=== PATIENT | female | born 1985 | race Caucasian/White ===

== ENCOUNTER 2020-11-19 21:26 | Emergency (ER) | payer SELFPAY ==
[2020-11-19] MEDS ORDERED: LORazepam 2 MG/ML SDV IVPUSH ONE (21:51)
[2020-11-19] MEDS ORDERED: LORazepam 1 MG Tab PO ONE (22:01)
--- NOTE | 2020-11-19 22:12 | EDM.PDOC ---
ED HPI GENERAL MEDICAL PROBLEM - General Chief Complaint: Behavioral/Psych Stated Complaint: ALCOHOL POISONING Time Seen by Provider: 11/19/20 21:39 - History of Present Illness INITIAL COMMENTS - FREE TEXT/NARRATIVE: HISTORY AND PHYSICAL: History of present illness: This is a 35-year-old female with no significant past medical history for hypertension, diabetes, liver, lung, kidney problems, depression, bipolar, schizophrenia, or other mental health issues who presents ER today secondary to depression and having self-harm thoughts. Patient reports that she has been having increasing depression over the last several weeks over the recent of 2 of her family members. Patient reports that she has 3 children and is and lives with her . 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 Patient reports that whenever she looks at scissors she has thoughts about what would happen if she stabbed herself and . Patient is tearful about what would happen to her children. Patient reports that she had been having self-harm thoughts but has had no specific plan on doing it to herself. Patient is extremely tearful during this evaluation. Patient denies any recent fevers, shakes, chills, nausea, vomiting, diarrhea, dysuria, frequency, urgency. Patient reports that she feels extremely anxious and has a hard time breathing at times. Patient denies any homicidal thoughts. Patient admits to alcohol use approximately 6 days ago. Patient reports that she was drinking approximately 4-5 shots of whiskey daily for 4 days (from Tuesday to Tuesday). She reports her last drink was on Tuesday and she has had not had any thing to drink on Tuesday or Tuesday secondary to having to go back to work. Review of systems: As per history of present illness and below otherwise all systems reviewed and negative. Past medical history: As per history of present illness and as reviewed below otherwise noncontributory. Surgical history: As per history of present illness and as reviewed below otherwise noncontributory. Social history: No reported history of drug or alcohol abuse. Family history: As per history of present illness and as reviewed below otherwise noncontributory. Physical exam: Constitutional: Patient is oriented to person, place, and time. Appears well- developed and well-nourished. No distress. HEENT: Moist mucous membranes Head: Normocephalic and atraumatic Eyes: Right eye exhibits no discharge. Left eye exhibits no discharge. No scleral icterus Neck: Normal range of motion. No tracheal deviation present. Cardiovascular: Normal rate and regular rhythm. Pulmonary: Effort normal, no respiratory distress. Abdominal: No distention Musculoskeletal: Normal range of motion Neurologic: Alert and oriented to person, place and time. Skin: Magnet, warm and dry. Psychiatric: Tearful and depressed. Poor eye contact. Nursing note and vital signs have been reviewed This patient was seen and evaluated during the 2019 SARS-CoV-2 novel coronavirus pandemic period. Community viral transmission is ongoing at time of this encounter and the emergency department is operating under pandemic response procedures. Diagnostics: Mental health profile Therapeutics: Ativan 1 mg p.o. Assessment and plan: This is a 35-year-old female with no significant past medical history or mental health history who presents ER today secondary to severe depression and having passive suicidal thoughts. I have discussed with the patient that we will check her labs that we can medically clear her and I thought that she would be best served by being transferred to speak to a mental health specialist which would require transfer to another facility. Patient is agreement with the plan at this time. Patient will be given Ativan 1 mg p.o. to assist her with her anxiety. 11:39 PM: Patient has been resting comfortably in the ED. Patient's labs are all within normal limits. Patient's alcohol level was 15. Patient's urine drug screen is negative. We will discuss with [facility] for possible transfer for mental health admission secondary to SI and MDD. Case discussed with Dr. Colmenares with agreed to accept patient in transfer for further mental health evaluation. Patient be transferred by S. Definitive disposition and diagnosis as appropriate pending reevaluation and review of above. - Related Data Allergies Allergy/AdvReac Type Severity Reaction Status Date / Time No Known Allergies Allergy Verified 11/19/20 21:57 Home Meds: Home Meds . [No Known Home Meds] 11/19/20 [History] ED ROS GENERAL - Review of Systems Review Of Systems: See Below ED EXAM, GENERAL - Physical Exam Exam: See Below #1 Interpretation EKG Interpretation Comments: EKG: As interpreted by ER physician: Jluis: Nonspecific ST-T wave abnormalities Normal axis No evidence of ST elevation RI Normal sinus rhythm heart rate of 103 Course - Vital Signs Last Recorded V/S: Last Vital Signs Temp 98.1 F 11/19/20 21:40 Pulse 98 11/19/20 22:30 Resp 18 11/19/20 22:30 BP 134/87 11/19/20 22:30 Pulse Ox 97 11/19/20 22:30 - Orders/Labs/Meds Orders: Active Orders 24 hr Category Date Time Status EKG Documentation Completion [RC] STAT Care 11/19/20 21:51 Active Labs: Laboratory Tests 11/19/20 11/19/20 11/19/20 Range/Units 21:45 21:45 21:45 WBC (4.0-11.0) K/uL RBC (4.30-5.90) M/uL Hgb (12.0-16.0) g/dL Hct (36.0-46.0) % MCV (80.0-98.0) fL MCH (27.0-32.0) pg MCHC (31.0-37.0) g/dL RDW Std Deviation (28.0-62.0) fl RDW Coeff of Denisse (11.0-15.0) % Plt Count (150-400) K/uL MPV (7.40-12.00) fL Neut % (Auto) (48.0-80.0) % Lymph % (Auto) (16.0-40.0) % [place] % (Auto) (0.0-15.0) % Eos % (Auto) (0.0-7.0) % Baso % (Auto) (0.0-1.5) % Neut # (Auto) (1.4-5.7) K/uL Lymph # (Auto) (0.6-2.4) K/uL [place] # (Auto) (0.0-0.8) K/uL Eos # (Auto) (0.0-0.7) K/uL Baso # (Auto) (0.0-0.1) K/uL Nucleated RBC % /100WBC Nucleated RBCs # K/uL Sodium (136-145) mmol/L Potassium (3.5-5.1) mmol/L Chloride (98-107) mmol/L Carbon Dioxide (21.0-32.0) mmol/L BUN (7.0-18.0) mg/dL Creatinine (0.6-1.0) mg/dL Est Cr Clr Drug Dosing mL/min Estimated GFR (MDRD) ml/min Glucose (74-106) mg/dL Calcium (8.5-10.1) mg/dL Magnesium (1.8-2.4) mg/dL Total Bilirubin (0.2-1.0) mg/dL AST (15-37) IU/L ALT (14-63) IU/L Alkaline Phosphatase (46-116) U/L Total Protein (6.4-8.2) g/dL Albumin (3.4-5.0) g/dL Globulin (2.6-4.0) g/dL Albumin/Globulin Ratio (0.9-1.6) TSH 3rd Generation (0.36-3.74) uIU/mL Urine Color YELLOW Urine Appearance CLOUDY Urine pH 6.0 (5.0-8.0) Ur Specific [place] 1.010 (1.001-1.035) Urine Protein NEGATIVE (NEGATIVE) mg/dL Urine Glucose (UA) NEGATIVE (NEGATIVE) mg/dL Urine Ketones NEGATIVE (NEGATIVE) mg/dL Urine Occult Blood SMALL H (NEGATIVE) Urine Nitrite POSITIVE H (NEGATIVE) Urine Bilirubin NEGATIVE (NEGATIVE) Urine Urobilinogen 0.2 (<2.0) EU/dL Ur Leukocyte Esterase TRACE H (NEGATIVE) Urine RBC 1-3 (0-2/HPF) Urine WBC 5-8 (0-5/HPF) Ur Epithelial Cells OCCASIONAL (NONE-FEW) Urine Bacteria 4+ H (NEGATIVE) Urine Mucus LIGHT (NONE-MOD) Urine HCG, Qual NEGATIVE (NEGATIVE) Salicylates (0-20) mg/dL Urine Opiates Screen NEGATIVE (NEGATIVE) Ur Oxycodone Screen NEGATIVE (NEGATIVE) Urine Methadone Screen NEGATIVE (NEGATIVE) Acetaminophen ug/mL Ur Barbiturates Screen NEGATIVE (NEGATIVE) Ur Phencyclidine Scrn NEGATIVE (NEGATIVE) Ur Amphetamine Screen NEGATIVE (NEGATIVE) U Methamphetamines Scrn NEGATIVE (NEGATIVE) U Benzodiazepines Scrn NEGATIVE (NEGATIVE) U Cocaine Metab Screen NEGATIVE (NEGATIVE) U Marijuana (THC) Screen NEGATIVE (NEGATIVE) Ethyl Alcohol mg/dL SARS-CoV-2 RNA (BRAYDON) (NEGATIVE) 11/19/20 11/19/20 11/19/20 Range/Units 22:03 22:03 22:30 WBC 9.56 (4.0-11.0) K/uL RBC 4.16 L (4.30-5.90) M/uL Hgb 13.2 (12.0-16.0) g/dL Hct 38.3 (36.0-46.0) % MCV 92.1 (80.0-98.0) fL MCH 31.7 (27.0-32.0) pg MCHC 34.5 (31.0-37.0) g/dL RDW Std Deviation 42.8 (28.0-62.0) fl RDW Coeff of Denisse 13 (11.0-15.0) % Plt Count 302 (150-400) K/uL MPV 9.70 (7.40-12.00) fL Neut % (Auto) 69.5 (48.0-80.0) % Lymph % (Auto) 25.0 (16.0-40.0) % [place] % (Auto) 3.8 (0.0-15.0) % Eos % (Auto) 1.2 (0.0-7.0) % Baso % (Auto) 0.5 (0.0-1.5) % Neut # (Auto) 6.7 H (1.4-5.7) K/uL Lymph # (Auto) 2.4 (0.6-2.4) K/uL [place] # (Auto) 0.4 (0.0-0.8) K/uL Eos # (Auto) 0.1 (0.0-0.7) K/uL Baso # (Auto) 0.1 (0.0-0.1) K/uL Nucleated RBC % 0.0 /100WBC Nucleated RBCs # 0 K/uL Sodium 139 (136-145) mmol/L Potassium 3.1 L (3.5-5.1) mmol/L Chloride 100 (98-107) mmol/L Carbon Dioxide 24.1 (21.0-32.0) mmol/L BUN 8 (7.0-18.0) mg/dL Creatinine 0.7 (0.6-1.0) mg/dL Est Cr Clr Drug Dosing 107.01 mL/min Estimated GFR (MDRD) > 60.0 ml/min Glucose 120 H (74-106) mg/dL Calcium 8.2 L (8.5-10.1) mg/dL Magnesium 2.0 (1.8-2.4) mg/dL Total Bilirubin 0.2 (0.2-1.0) mg/dL AST 24 (15-37) IU/L ALT 36 (14-63) IU/L Alkaline Phosphatase 86 (46-116) U/L Total Protein 7.8 (6.4-8.2) g/dL Albumin 3.8 (3.4-5.0) g/dL Globulin 4.0 (2.6-4.0) g/dL Albumin/Globulin Ratio 0.9 (0.9-1.6) TSH 3rd Generation 0.77 (0.36-3.74) uIU/mL Urine Color Urine Appearance Urine pH (5.0-8.0) Ur Specific [place] (1.001-1.035) Urine Protein (NEGATIVE) mg/dL Urine Glucose (UA) (NEGATIVE) mg/dL Urine Ketones (NEGATIVE) mg/dL Urine Occult Blood (NEGATIVE) Urine Nitrite (NEGATIVE) Urine Bilirubin (NEGATIVE) Urine Urobilinogen (<2.0) EU/dL Ur Leukocyte Esterase (NEGATIVE) Urine RBC (0-2/HPF) Urine WBC (0-5/HPF) Ur Epithelial Cells (NONE-FEW) Urine Bacteria (NEGATIVE) Urine Mucus (NONE-MOD) Urine HCG, Qual (NEGATIVE) Salicylates 1.8 (0-20) mg/dL Urine Opiates Screen (NEGATIVE) Ur Oxycodone Screen (NEGATIVE) Urine Methadone Screen (NEGATIVE) Acetaminophen <2.0 ug/mL Ur Barbiturates Screen (NEGATIVE) Ur Phencyclidine Scrn (NEGATIVE) Ur Amphetamine Screen (NEGATIVE) U Methamphetamines Scrn (NEGATIVE) U Benzodiazepines Scrn (NEGATIVE) U Cocaine Metab Screen (NEGATIVE) U Marijuana (THC) Screen (NEGATIVE) Ethyl Alcohol 15 mg/dL SARS-CoV-2 RNA (BRAYDON) NEGATIVE (NEGATIVE) Meds: Medications Discontinued Medications Generic Name Dose Route Start Last Admin Trade Name Freq PRN Reason Stop Dose Admin Lorazepam 1 mg 11/19/20 21:51 11/19/20 22:02 Ativan IVPUSH 11/19/20 21:52 Not Given ONETIME ONE Lorazepam 1 mg 11/19/20 22:01 11/19/20 22:07 Ativan PO 11/19/20 22:02 1 mg ONETIME ONE Administration Departure - Departure Time of Disposition: 23:42 Disposition: DC/Tfer to Psych Hosp/Unit 65 Condition: Fair Clinical Impression: Depressive disorder, Suicidal ideation MDD (major depressive disorder) Qualifiers: Major depression recurrence: single episode Active/Remission status: currently active Major depression episode severity: severe Psychotic features: without psychotic features Qualified Code(s): F32.2 - Major depressive disorder, single episode, severe without psychotic features - Discharge Information Referrals: PCP,None [Primary Care Provider] - Forms: ED Department Discharge Sepsis Event Note (ED) - Evaluation Sepsis Screening Result: No Definite Risk - Focused Exam Vital Signs: Vital Signs Temp Pulse Resp BP Pulse Ox 11/19/20 22:30 98 18 134/87 97 11/19/20 21:40 98.1 F 104 H 18 126/65 97 - My Orders Last 24 Hours: My Active Orders 11/19/20 21:51 EKG Documentation Completion [RC] STAT - Assessment/Plan Last 24 Hours: My Active Orders 11/19/20 21:51 EKG Documentation Completion [RC] STAT
[2020-11-19 22:39] LABS: ACETAMINOPHEN <2.0 ug/mL; BLOOD UREA NITROGEN,BUN 8 mg/dL (7.0-18.0); CARBON DIOXIDE,CO2 24.1 mmol/L (21.0-32.0); CHLORIDE,CL 100 mmol/L (98-107); GLUCOSE RANDOM 120 mg/dL (74-106); POTASSIUM,K 3.1 mmol/L (3.5-5.1); SODIUM,NA 139 mmol/L (136-145)
== END 2020-11-20 00:40 ==
LOC: MW.ED 21:26
DX: F32.2 Major depressive disorder, single episode, severe without psychotic features (principal); I10 Essential (primary) hypertension; E11.9 Type 2 diabetes mellitus without complications; Z20.822 Contact with and (suspected) exposure to COVID-19
CPT/HCPCS: 36415; 80053; 80143; 80179; 80305; 80307; 81001; 81025; 83735; 84443; 85025; 87635; 93005; 99285; A9270; U0002